=== PATIENT | female | born 1985 | race Hispanic/Latino ===

== ENCOUNTER 2018-01-30 16:06 | Emergency (ER) | payer SELFPAY ==
[2018-01-30 16:14] VITALS: BP 109/69
[2018-01-30 16:54] LABS: HCG Qualitative,Urine Negative (Negative)
[2018-01-30 16:56] LABS: Bilirubin,Urine NEG (Negative); Blood,Urine NEG (Negative); Color,Urine Straw (Yellow); Mucus,Urine FEW /HPF; Protein,Urine <15 mg/dL mg/dL (Negative); Urobilinogen,Urine < 2.0 mg/dL (<2.0)
--- NOTE | 2018-01-30 17:08 | Emergency Department Report ---
ED Female HPI - General Chief complaint: Urogenital-Female Stated complaint: POSSIBLE UTI Time Seen by Provider: 01/30/18 16:49 Source: patient Mode of arrival: Ambulatory Limitations: No Limitations - History of Present Illness Initial comments: This is a 33-year-old female nontoxic, well nourished in appearance, no acute signs of distress presents to the ED with c/o of vaginal discharge and dysuria with urinary frequency. Patient denies any vaginal pain or swelling. Patient denies any vaginal ulcers or lesions. Patient denies any nausea, vomiting, chest pain, shortness of breathe, fever, chills, headache, back pain, numbness, tingling, stiff neck. Patient denies any other urinary symptoms. Patient stated she is concerned about STD and wants to be test and treated empirically. Patient denies any allergies or PMH. MD Complaint: vaginal discharge, dysuria, possible STD Radiation: non-radiating Severity: mild Severity scale (0 -10): 3 Quality: burning Consistency: intermittent Improves with: none Worsens with: urination Are you Now?: No Associated Symptoms: vaginal discharge, dysuria. denies: vaginal bleeding, abdominal pain, nausea/vomiting, fever/chills, headaches, loss of appetite, hematuria, rash, seizure, shortness of breath, syncope, weakness - Related Data Sexually active: Yes Home Medications Medication Instructions Recorded Confirmed Last Taken Xanax TAB 1 mg PO TID PRN 09/17/14 09/17/14 Unknown Previous Rx's Medication Instructions Recorded Last Taken Type Ibuprofen [Motrin] 600 mg PO Q8H PRN #60 tablet 09/18/14 Unknown Rx methOCARBAMOL [Robaxin] 500 mg PO BID #10 tab 09/18/14 Unknown Rx traMADol [Ultram] 50 mg PO Q6HR PRN #14 tablet 09/18/14 Unknown Rx Ciprofloxacin HCl [Ciprofloxacin 500 mg PO Q12H #14 tab 01/30/18 Unknown Rx TAB] Phenazopyridine [Pyridium] 200 mg PO BID #14 tab 01/30/18 Unknown Rx metroNIDAZOLE [Flagyl] 500 mg PO Q12HR #14 tab 01/30/18 Unknown Rx Allergies Allergy/AdvReac Type Severity Reaction Status Date / Time No Known Allergies Allergy Unverified 01/30/18 16:09 ED Review of Systems ROS: Stated complaint: POSSIBLE UTI Other details as noted in HPI Constitutional: denies: chills, fever Eyes: denies: eye pain, eye discharge, vision change ENT: denies: ear pain, throat pain Respiratory: denies: cough, shortness of breath, wheezing Cardiovascular: denies: chest pain, palpitations Endocrine: no symptoms reported Gastrointestinal: denies: abdominal pain, nausea, diarrhea Genitourinary: urgency, dysuria, frequency, discharge. denies: hematuria Musculoskeletal: denies: back pain, joint swelling, arthralgia Skin: denies: rash, lesions Neurological: denies: headache, weakness, paresthesias Psychiatric: denies: anxiety, depression Hematological/Lymphatic: denies: easy bleeding, easy bruising ED Past Medical Hx - Past Medical History Hx Psychiatric Treatment: Yes (ANXIETY) Additional medical history: IC - Surgical History Additional Surgical History: RIGHT ARM - Social History Smoking Status: Never Smoker Substance Use Type: Alcohol - Medications Home Medications: Home Medications Medication Instructions Recorded Confirmed Last Taken Type Xanax TAB 1 mg PO TID PRN 09/17/14 09/17/14 Unknown History Ibuprofen [Motrin] 600 mg PO Q8H PRN #60 tablet 09/18/14 Unknown Rx methOCARBAMOL [Robaxin] 500 mg PO BID #10 tab 09/18/14 Unknown Rx traMADol [Ultram] 50 mg PO Q6HR PRN #14 tablet 09/18/14 Unknown Rx Ciprofloxacin HCl [Ciprofloxacin 500 mg PO Q12H #14 tab 01/30/18 Unknown Rx TAB] Phenazopyridine [Pyridium] 200 mg PO BID #14 tab 01/30/18 Unknown Rx metroNIDAZOLE [Flagyl] 500 mg PO Q12HR #14 tab 01/30/18 Unknown Rx ED Physical Exam - General Limitations: No Limitations General appearance: alert, in no apparent distress - Head Head exam: Present: atraumatic, normocephalic - Eye Eye exam: Present: normal appearance Pupils: Present: normal accommodation - ENT ENT exam: Present: normal exam, mucous membranes moist - Neck Neck exam: Present: normal inspection, full ROM. Absent: tenderness, meningismus, lymphadenopathy - Respiratory Respiratory exam: Present: normal lung sounds bilaterally. Absent: respiratory distress, wheezes, rales, rhonchi, stridor, chest wall tenderness, accessory muscle use, decreased breath sounds, prolonged expiratory - Cardiovascular Cardiovascular Exam: Present: regular rate, normal rhythm, normal heart sounds. Absent: irregular rhythm, systolic murmur, diastolic murmur, rubs, gallop - GI/Abdominal GI/Abdominal exam: Present: soft, normal bowel sounds. Absent: distended, tenderness, guarding, rebound, rigid, diminished bowel sounds - Rectal Rectal exam: Present: deferred - External exam: Present: normal external exam, other (nursing attendant Levels Beyond present in exam). Absent: erythema, swelling, lesions, lacerations, ecchymosis , bleeding Speculum exam: Present: cervical discharge, other (nursing attendant Levels Beyond present in exam). Absent: erythema, vaginal discharge, vaginal bleeding, foreign body, tissue, laceration Bi-manual exam: Present: normal bi-manual exam, other (nursing attendant Levels Beyond present in exam). Absent: cervical motion tendernes, adnexal tenderness, adnexal mass, uterine enlargement, uterine tenderness - Extremities Exam Extremities exam: Present: normal inspection, full ROM - Back Exam Back exam: Present: normal inspection, full ROM. Absent: tenderness, CVA tenderness (R), CVA tenderness (L), muscle spasm, paraspinal tenderness, vertebral tenderness, rash noted - Neurological Exam Neurological exam: Present: alert, oriented X3, normal gait - Psychiatric Psychiatric exam: Present: normal affect, normal mood - Skin Skin exam: Present: warm, dry, intact, normal color. Absent: rash ED Course Vital Signs 01/30/18 16:09 Temperature 98.2 F Pulse Rate 104 H Respiratory 16 Rate Blood Pressure 109/69 O2 Sat by Pulse 100 Oximetry - Reevaluation(s) Reevaluation #1: 01/30/18 17:06 Patient is speaking in full sentences with no signs of distress noted. ED Medical Decision Making - Medical Decision Making This is a 26-year-old female that presents with possible STD and UTI and BV. Patient is stable was examined by me. Patient swabbed self as she stated to rather swab herself then getting a pelvic exam. There is no abdominal tenderness. No pelvic pain. UA obtained. Wet prep obtained. Gonorrhea chlamydia swab pending. Patient was instructed to return in 2 days for GC results. Patient wanted empirical treatment so patient received 250 mg Rocephin and 1 g of azithromycin by mouth. Patient was instructed to Follow-up with a primary care doctor in 3-5 days or if symptoms worsen and continue return to emergency room as soon as possible. At time of discharge, the patient does not seem toxic or ill in appearance. No acute signs of distress noted. Patient agrees to discharge treatment plan of care. No further questions noted by the patient. Patient requested for Cipro as she stated is the only thing that helps her for UTIs due to history of IBS. Critical care attestation.: If time is entered above; I have spent that time in minutes in the direct care of this critically ill patient, excluding procedure time. ED Disposition Clinical Impression: Possible exposure to STD, BV (bacterial vaginosis) UTI (urinary tract infection) Qualifiers: Urinary tract infection type: site unspecified Hematuria presence: without hematuria Qualified Code(s): N39.0 - Urinary tract infection, site not specified Disposition: - TO HOME OR SELFCARE Is pt being admited?: No Does the pt Need Aspirin: No Condition: Stable Instructions: Metronidazole (By mouth), Bacterial Vaginosis (ED), Safe Sex (ED) , Urinary Tract Infection in Women (ED) Additional Instructions: Follow-up with a primary care doctor in 3-5 days or if symptoms worsen and continue return to emergency room as soon as possible. Return in 2-3 days for gonorrhea and chlamydia results. Prescriptions: Ciprofloxacin HCl [Ciprofloxacin TAB] 500 mg PO Q12H #14 tab metroNIDAZOLE [Flagyl] 500 mg PO Q12HR #14 tab Phenazopyridine [Pyridium] 200 mg PO BID #14 tab Referrals: PRIMARY CARE, [Primary Care Provider] - 3-5 Days YUE NIX MD [Staff Physician] - 3-5 Days [facility] [Outside] - 3-5 Days [facility] [Outside] - 3-5 Days Forms: Work/School Release Form(ED)
[2018-01-30] MEDS ORDERED: ROCEPHIN IM ONE (18:19)
[2018-01-30] MEDS ORDERED: ZITHROMAX PO ONE (18:19)
[2018-01-30] MEDS ORDERED: XYLOCAINE 1% MPF 5 mL INFILTRATI ONE (18:19)
== END 2018-01-30 18:53 | disposition home or self-care (01) ==
LOC: ED 16:06
DX: N76.0 Acute vaginitis (principal); B96.89 Other specified bacterial agents as the cause of diseases classified elsewhere; N39.0 Urinary tract infection, site not specified; F41.9 Anxiety disorder, unspecified
CPT/HCPCS: 81001; 81025; 87210; 87591; 96372; 99284; J0696